=== PATIENT | male | born 1985 | race Caucasian/White ===

== ENCOUNTER 2018-01-27 17:50 | Emergency (ER) | payer OTHER ==
[~2018-01-27] VITALS: Ht 180.3 cm; Wt 75.5 kg
[2018-01-27 18:07] VITALS: Ht 180.3 cm; Wt 75.5 kg
--- NOTE | 2018-01-27 18:52 | EMERGENCY ROOM VISIT NOTE ---
History Report prepared by Sena: Jane Méndez Under the Supervision of: Dr. Toño Ordaz M.D. 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 He rates his pain as a 7/10 in severity but notes he took 2 ibuprofen which alleviated his pain to a 2/10 in severity. He has back pain but denies any family history of kidney stones, but states his brother had an appendectomy. His appetite is unaffected and the last time he ate was during lunch today. The patient reports he was sick 7 days dining room captain and took 3 doses of extra strength Tylenol on an empty stomach. He noted flulike symptoms. Pt denies LOC, headache, fevers, chills, diaphoresis, visual changes, neck pain, chest pain, breathing difficulties, nausea, vomiting, melena, hematochezia, urinary symptoms, numbness, weakness, lymphadenopathy, rash, or other complaints. Source of History: patient Onset: 3 days dining room captain Position: abdomen (RLQ) Symptom Intensity: 7/10 before ibuprofen, 2/10 after ibuprofen Timing: constant Associated Symptoms: + back pain Note: Negative swelling Review of Systems See HPI for pertinent positives and negatives. A total of ten systems were reviewed and were otherwise negative. Past Medical & Surgical Medical Problems: (1) No significant past medical history Family History No pertinent family history Social History Smoking Status: Never Smoker Smokeless Tobacco Use: Unknown Occupation Status: employed Current/Historical Medications Scheduled Ciprofloxacin Hcl (Cipro), 500 MG PO BID Allergies Coded Allergies: No Known Allergies (Unverified , 01/27/18) Physical Exam Vital Signs Date Time Temp Pulse Resp B/P (MAP) Pulse Ox O2 Delivery O2 Flow Rate FiO2 01/27/18 22:02 36.7 80 18 125/80 99 Room Air 01/27/18 18:07 36.8 87 18 129/82 99 Room Air Physical Exam GENERAL: Awake, alert, well-appearing, in no distress HENT: Normocephalic, atraumatic. Oropharynx unremarkable. EYES: Normal conjunctiva. Sclera non-icteric. NECK: Supple. No nuchal rigidity. FROM. No masses. RESPIRATORY: Clear to auscultation. No wheezes. No rales. Normal respiratory effort. CARDIAC: Normal rate. Normal rhythm. No murmurs. No rubs. Extremities warm and well perfused. Pulses equal. No JVD. GI: Soft, non-distended. No rebound or guarding. No masses. CVA tenderness. RECTAL: Deferred. MUSCULOSKELETAL: Atraumatic. Chest examination reveals no tenderness. The back is symmetrical on inspection without obvious abnormality. There is no CVA tenderness to palpation. No joint edema. LOWER EXTREMITIES: Calves are equal size bilaterally and non-tender. No edema. No discoloration. NEURO: Normal sensorium. No sensory or motor deficits noted. SKIN: No rash or jaundice noted. Medical Decision & Procedures ER Provider Diagnostic Interpretation: Radiology results as stated below per my review and radiologist interpretation: ABD/PELVIS WITHOUT FOR STONE HISTORY: 32 years-old Male Right CVA pain, ? stone acute right flank pain with concern for nephrolithiasis COMPARISON: None available TECHNIQUE: Multiple axial CT images of the abdomen and pelvis were obtained without the use of IV contrast. A dose lowering technique was used consistent with the principals of ALARA. FINDINGS: Imaged lung bases appear clear. No pneumatosis or pneumoperitoneum. The imaged inferior cardiac chambers are unremarkable. The liver, spleen, gallbladder, adrenal glands and pancreas are unremarkable. Left kidney appears normal. There is mild to moderate right-sided perinephric and periureteral inflammatory stranding with mild dilation of the right renal pelvis and proximal right ureter. No obstructing calculus or lesion identified. Bladder is within normal limits. Calcifications are seen within the central prostate. Aorta is normal in course and caliber. Retroaortic left renal vein. No bulky adenopathy. There is no bowel obstruction or focal bowel wall thickening. Mild to moderate stool volume throughout the colon. There is a linear 1.3 cm hyperattenuating structure within the transverse colon on image 174 series 3 which is indeterminate. Appendix appears normal. No mesenteric inflammatory changes or ascites. Soft tissues are within normal limits. The bones appear intact. Bone island of the right iliac bone. IMPRESSION: 1. Mild to moderate right-sided perinephric and periureteral inflammatory stranding with mild dilation of the right renal pelvis and proximal right ureter. No obstructing calculus or lesion identified. These findings would suggest sequela of recently passed calculus or ascending infectious etiology with ureteritis and pyelonephritis. Correlate with urinalysis. 2. Normal appendix. 3. Indeterminate linear 1.3 cm hyperattenuating structure of the transverse colon. Correlate clinically for possibility of ingested bone or foreign body. No bowel obstruction or bowel wall thickening. The above report was generated using voice recognition software. It may contain grammatical, syntax or spelling errors. Electronically signed by: Edinson Talbert M.D. 01/27/2018 9:19 PM Dictated Date/Time: 01/27/2018 9:11 PM Laboratory Results 01/27/18 18:56 Red Blood Count 4.17, Mean Corpuscular Volume 88.5, Mean Corpuscular Hemoglobin 30.5, Mean Corpuscular Hemoglobin Concent 34.4, Mean Platelet Volume 9.4, Neutrophils (%) (Auto) 67.9, Lymphocytes (%) (Auto) 21.5, Monocytes (%) (Auto) 8.9, Eosinophils (%) (Auto) 1.0, Basophils (%) (Auto) 0.2, Neutrophils # (Auto) 6.93, Lymphocytes # (Auto) 2.20, Monocytes # (Auto) 0.91, Eosinophils # (Auto) 0.10, Basophils # (Auto) 0.02 01/27/18 18:56 Test 01/27/18 18:50 01/27/18 18:56 Urine Color YELLOW Urine Appearance CLEAR (CLEAR) Urine pH 5.0 (4.5-7.5) Urine Specific [place] 1.022 (1.000-1.030) Urine Protein NEG (NEG) Urine Glucose (UA) NEG (NEG) Urine Ketones TRACE (NEG) Urine Occult Blood NEG (NEG) Urine Nitrite NEG (NEG) Urine Bilirubin NEG (NEG) Urine Urobilinogen NEG (NEG) Urine Leukocyte Esterase NEG (NEG) White Blood Count 10.21 K/uL (4.8-10.8) Red Blood Count 4.17 M/uL (4.7-6.1) Hemoglobin 12.7 g/dL (14.0-18.0) Hematocrit 36.9 % (42-52) Mean Corpuscular Volume 88.5 fL (80-100) Mean Corpuscular Hemoglobin 30.5 pg (25-34) Mean Corpuscular Hemoglobin Concent 34.4 g/dl (32-36) Platelet Count 416 K/uL (130-400) Mean Platelet Volume 9.4 fL (7.4-10.4) Neutrophils (%) (Auto) 67.9 % Lymphocytes (%) (Auto) 21.5 % Monocytes (%) (Auto) 8.9 % Eosinophils (%) (Auto) 1.0 % Basophils (%) (Auto) 0.2 % Neutrophils # (Auto) 6.93 K/uL (1.4-6.5) Lymphocytes # (Auto) 2.20 K/uL (1.2-3.4) Monocytes # (Auto) 0.91 K/uL (0.11-0.59) Eosinophils # (Auto) 0.10 K/uL (0-0.5) Basophils # (Auto) 0.02 K/uL (0-0.2) RDW Standard Deviation 39.0 fL (36.4-46.3) RDW Coefficient of Variation 12.2 % (11.5-14.5) Immature Granulocyte % (Auto) 0.5 % Immature Granulocyte # (Auto) 0.05 K/uL (0.00-0.02) Anion Gap 6.0 mmol/L (3-11) Est Creatinine Clear Calc Drug Dose 121.8 ml/min Estimated GFR () 127.0 Estimated GFR (Non- 109.6 BUN/Creatinine Ratio 20.0 (10-20) Calcium Level 9.3 mg/dl (8.5-10.1) Total Bilirubin 0.4 mg/dl (0.2-1) Direct Bilirubin 0.1 mg/dl (0-0.2) Aspartate Amino Transf (AST/SGOT) 18 U/L (15-37) Alanine Aminotransferase (ALT/SGPT) 20 U/L (12-78) Alkaline Phosphatase 62 U/L (45-117) Total Protein 8.7 gm/dl (6.4-8.2) Albumin 4.0 gm/dl (3.4-5.0) Lipase 144 U/L (73-393) Laboratory results reviewed by me Medications Administered Medications (Trade) Dose Ordered Sig/Abigail Route Start Time Stop Time Status Last Admin Dose Admin Ciprofloxacin (Cipro Tab) 500 mg NOW STAT PO 01/27/18 21:50 01/27/18 21:53 DC 01/27/18 22:02 500 MG ED Course 1816: The patient was evaluated in room B9. A complete history and physical exam was performed. 2010: I checked on the patient at this time. He is still having pain in the right CVA area. 2143: I reevaluated the patient. Discussed results and discharge instructions: He verbalized understanding and agreement. The patient is ready for discharge. 2149: Ordered Cipro Tab 500 mg PO Medical Decision Triage Nursing notes reviewed and agree them. The patient's history was concerning for flank and abdominal pain. Differential diagnosis: Etiologies such as renal colic, appendicitis, diverticulitis, mesenteric ischemia, aortic pathology, infections, inflammatory bowel disease, PUD, biliary pathology, UTI, as well as others were entertained. Physical examination findings: As above. Benign abdomen. No reproducible tenderness anteriorly. Only CVA tenderness on the right side. ER treatment provided: Patient declined analgesia On reassessment the patient felt better. Diagnostic interpretation by me: The labs revealed an unremarkable CBC and chemistry panel.. Urinalysis revealed no obvious abnormalities. Imaging studies: CT scan as above. The patient was doing with right flank pain. He noted flulike symptoms prior. He did not have a good history to support passing a kidney stone. Given the findings on CT this would be concerning for infection. He was treated with Cipro. A urine culture was ordered. He will be referred to urology. He was also referred for primary care. If he worsens in any way he will be back. I gave my usual and customary discussion regarding this issue. By the evaluation outlined above other emergent etiologies such as those listed in the differential, as well as others, were deemed relatively unlikely. The patient was educated about the findings as listed above. All questions were answered and the patient was pleased with the treatment. Return instructions were outlined and the patient was discharged in stable condition. Medication Reconcilliation Current Medication List: was personally reviewed by me Blood Pressure Screening Patient's blood pressure: Normal blood pressure Blood pressure disposition: Did not require urgent referral Impression Primary Impression: Right flank pain Additional Impression: Pyelonephritis Scribe Attestation The scribe's documentation has been prepared under my direction and personally reviewed by me in its entirety. I confirm that the note above accurately reflects all work, treatment, procedures, and medical decision making performed by me. Departure Information Dispostion Home / Self-Care Prescriptions Ciprofloxacin Hcl (CIPRO) 500 Mg Tab 500 MG PO BID, #12 TAB Prov: Toño Ordaz MD 01/27/18 Referrals No Doctor, Assigned (PCP) Forms Call Back Authorization, HOME CARE DOCUMENTATION FORM, IMPORTANT VISIT INFORMATION Patient Instructions My [facility] Additional Instructions Ciprofloxacin 500mg: Take one pill twice daily for 7 days for your infection. All antibiotics can cause diarrhea. If this occurs and you feel worse or it does not resolve in 1-2 days follow up with your doctor or return to the Emergency Department as this could be signs of serious underlying problems. Any medication can cause an allergic reaction or complication, stop the pills immediately and return to the ER for rash, hives, breathing difficulties, tendon pain, tendon injury, or swelling. Ibuprofen(Motrin, Advil) may be used for fever or pain. Use 600mg every six hours as needed. Take with food. Avoid using more than 2400mg in a 24 hour period. Do not use 2400mg per day for more than three consecutive days without physician direction. Prolonged inappropriate use can lead to stomach upset or ulcers. This medication can be taken if you need to drive, work, or perform activities which may be dangerous when taking narcotic pain medication. (AND/OR) Acetaminophen(Tylenol) may be used for fever or pain. Use 1000mg every six hours as needed. Avoid using more than 4000mg in a 24 hour period. This medication can be taken if you need to drive, work, or perform activities which may be dangerous when taking narcotic pain medication. Rest and avoid strenuous activity until your symptoms resolve. Drink plenty of fluids. Return to the ER for worsening abdominal or back pain, vomiting, fevers, passing out, or as needed. Follow up with [facility] tomorrow, [phone], to arrange a visit. Follow-up with [facility] primary care as discussed. Problem Qualifiers
[2018-01-27 19:07] LABS: BASO % 0.2 %; BASO ABS # 0.02 K/uL (0-0.2); HEMATOCRIT 36.9 % (42-52); HEMOGLOBIN 12.7 g/dL (14.0-18.0); IG# 0.05 K/uL (0.00-0.02); LYMPH % 21.5 %; MEAN CELL VOLUME 88.5 fL (80-100); MEAN CORPUSCULAR HEMOGLOBIN 30.5 pg (25-34); MEAN CORPUSCULAR HGB CONC 34.4 g/dl (32-36); MEAN PLATELET VOLUME 9.4 fL (7.4-10.4); MONO % 8.9 %; MONO ABS # 0.91 K/uL (0.11-0.59); NEUT % 67.9 %; NEUT ABS # 6.93 K/uL (1.4-6.5); PLATELET COUNT 416 K/uL (130-400); RED CELL DISTRIBUTION WIDTH CV 12.2 % (11.5-14.5); WHITE BLOOD COUNT 10.21 K/uL (4.8-10.8)
[2018-01-27 19:34] LABS: CALCIUM 9.3 mg/dl (8.5-10.1); CREATININE 0.91 mg/dl (0.60-1.40); POTASSIUM 3.6 mmol/L (3.5-5.1)
[2018-01-27 19:36] LABS: TOTAL PROTEIN 8.7 gm/dl (6.4-8.2)
--- NOTE | 2018-01-27 21:20 | DIAGNOSTIC IMAGING REPORT ---
ABD/PELVIS WITHOUT FOR STONE HISTORY: 32 years-old Male Right CVA pain, ? stone acute right flank pain with concern for nephrolithiasis COMPARISON: None available TECHNIQUE: Multiple axial CT images of the abdomen and pelvis were obtained without the use of IV contrast. A dose lowering technique was used consistent with the principals of SUKHDEEP. FINDINGS: Imaged lung bases appear clear. No pneumatosis or pneumoperitoneum. The imaged inferior cardiac chambers are unremarkable. The liver, spleen, gallbladder, adrenal glands and pancreas are unremarkable. Left kidney appears normal. There is mild to moderate right-sided perinephric and periureteral inflammatory stranding with mild dilation of the right renal pelvis and proximal right ureter. No obstructing calculus or lesion identified. Bladder is within normal limits. Calcifications are seen within the central prostate. Aorta is normal in course and caliber. Retroaortic left renal vein. No bulky adenopathy. There is no bowel obstruction or focal bowel wall thickening. Mild to moderate stool volume throughout the colon. There is a linear 1.3 cm hyperattenuating structure within the transverse colon on image 174 series 3 which is indeterminate. Appendix appears normal. No mesenteric inflammatory changes or ascites. Soft tissues are within normal limits. The bones appear intact. Bone island of the right iliac bone. IMPRESSION: 1. Mild to moderate right-sided perinephric and periureteral inflammatory stranding with mild dilation of the right renal pelvis and proximal right ureter. No obstructing calculus or lesion identified. These findings would suggest sequela of recently passed calculus or ascending infectious etiology with ureteritis and pyelonephritis. Correlate with urinalysis. 2. Normal appendix. 3. Indeterminate linear 1.3 cm hyperattenuating structure of the transverse colon. Correlate clinically for possibility of ingested bone or foreign body. No bowel obstruction or bowel wall thickening. The above report was generated using voice recognition software. It may contain grammatical, syntax or spelling errors. Electronically signed by: Edinson Talbert M.D. 01/27/2018 9:19 PM Dictated Date/Time: 01/27/2018 9:11 PM
[2018-01-27] MEDS ORDERED: CIPROFLOXACIN 500 MG TAB PO STA ×2 (21:50)
[2018-01-27 22:02] VITALS: BP 125/80; PULSE 80; TEMP 36.7; O2SAT 99
[2018-01-27] MEDS ORDERED: CIPR-255 PO (22:05)
== END 2018-01-27 22:10 | disposition home or self-care (01) ==
LOC: C.EDB 17:51
DX: R10.31 Right lower quadrant pain (principal); M54.9 Dorsalgia, unspecified; N12 Tubulo-interstitial nephritis, not specified as acute or chronic